=== PATIENT | female | born 1985 | race Caucasian/White ===

== ENCOUNTER → 2018-02-16 | Day surgery (SDC) | payer OTHER ==
[~2018-02-16] MED LIST: LIDOCAINE 1%/EPI 1:100,000 30 ML VIAL. IJ
[2018-02-16] MEDS: LIDOCAINE 1% Multi-Dose 20 ML VIAL. SQ (10:42)
== END | disposition home or self-care (01) ==
LOC: SURG 10:07
DX: D17.0 Benign lipomatous neoplasm of skin and subcutaneous tissue of head, face and neck (principal); Z79.899 Other long term (current) drug therapy; L40.50 Arthropathic psoriasis, unspecified; Z90.49 Acquired absence of other specified parts of digestive tract; Z98.890 Other specified postprocedural states; Z90.710 Acquired absence of both cervix and uterus; Z98.51 Tubal ligation status
CPT/HCPCS: 21552; 88304; 99211; J3490